=== PATIENT | female | born 1935 | race Caucasian/White ===

== ENCOUNTER → 2019-07-27 | Outpatient (CLI) | payer OTHER | LOC: SJCVC 11:30 | DX: Z01.810 Encounter for preprocedural cardiovascular examination (principal); I21.29 ST elevation (STEMI) myocardial infarction involving other sites; R00.1 Bradycardia, unspecified; R94.31 Abnormal electrocardiogram [ECG] [EKG]; I10 Essential (primary) hypertension; M16.11 Unilateral primary osteoarthritis, right hip; J44.9 Chronic obstructive pulmonary disease, unspecified; M19.90 Unspecified osteoarthritis, unspecified site; Z79.82 Long term (current) use of aspirin; Z79.899 Other long term (current) drug therapy; Z87.891 Personal history of nicotine dependence ==

== ENCOUNTER → 2019-08-02 | Outpatient (CLI) | payer OTHER | END | disposition home or self-care (01) | LOC: SJCVCIMAG 07:36 | DX: Z01.810 Encounter for preprocedural cardiovascular examination (principal); I25.89 Other forms of chronic ischemic heart disease; R07.9 Chest pain, unspecified; I10 Essential (primary) hypertension; R60.9 Edema, unspecified; E78.00 Pure hypercholesterolemia, unspecified; M19.90 Unspecified osteoarthritis, unspecified site ==

== ENCOUNTER → 2019-09-02 | Outpatient (CLI) | payer OTHER ==
[~2019-09-02] MED LIST: ASA81BEC PO; HYDROCHLOROTHIA25 M2 PO; LANOXIN125 MCG PO; MELOXICAM7.5 MG PO; TOPROL XL100 MG PO; TOPROL XL50 MG PO; TRAZODONE HCL50 MG PO; XARELTO20 MG PO
== END ==
LOC: SJCVC 15:32
PROVIDERS: ATTEND Internal Medicine Cardiovascular Disease
DX: R94.31 Abnormal electrocardiogram [ECG] [EKG] (principal); I47.1 Supraventricular tachycardia; I48.0 Paroxysmal atrial fibrillation; I10 Essential (primary) hypertension; E78.00 Pure hypercholesterolemia, unspecified; R60.9 Edema, unspecified; M54.5 Low back pain; G89.29 Other chronic pain; J44.9 Chronic obstructive pulmonary disease, unspecified; M19.90 Unspecified osteoarthritis, unspecified site; Z87.891 Personal history of nicotine dependence; Z79.82 Long term (current) use of aspirin; Z79.899 Other long term (current) drug therapy; Z88.8 Allergy status to other drugs, medicaments and biological substances

== ENCOUNTER → 2019-09-07 | Outpatient (CLI) | payer OTHER | LOC: SJCVCIMAG 12:06 | DX: I08.3 Combined rheumatic disorders of mitral, aortic and tricuspid valves (principal); I48.0 Paroxysmal atrial fibrillation; I11.9 Hypertensive heart disease without heart failure; R94.31 Abnormal electrocardiogram [ECG] [EKG]; J44.9 Chronic obstructive pulmonary disease, unspecified; I42.9 Cardiomyopathy, unspecified; R60.9 Edema, unspecified; E78.00 Pure hypercholesterolemia, unspecified; M19.90 Unspecified osteoarthritis, unspecified site; Z87.891 Personal history of nicotine dependence; Z79.82 Long term (current) use of aspirin; Z79.899 Other long term (current) drug therapy ==

== ENCOUNTER → 2019-09-16 | Outpatient (CLI) | payer OTHER ==
[~2019-09-16] VITALS: Ht 162.6 cm; Wt 83.9 kg
[2019-09-16 08:36] VITALS: BP 145/61
[2019-09-16 08:36] LABS: HEMATOCRIT 38.3 % (37.0-47.0); HEMOGLOBIN 12.4 gm/dL (12.0-15.0); MCH 30.3 pg (26.0-34.0); MCHC 32.5 g/dL (28.0-37.0); MCV 93.1 fL (80.0-100.0); RBC 4.11 mil/uL (4.20-5.00); RDW 14.1 % (10.5-14.5); WBC 6.5 thou/uL (4.0-11.0)
[2019-09-16 08:42] LABS: CALCIUM 9.6 mg/dL (8.5-10.1); CREATININE 1.1 mg/dL (0.6-1.0); POTASSIUM 4.1 mmol/L (3.5-5.1)
[2019-09-16 08:47] LABS: DIGOXIN 0.6 ng/mL (0.9-2.0)
--- NOTE | 2019-09-16 12:43 | CATHLAB ---
[facility] [place] [address] INVASIVE PROCEDURE REPORT Name: JACQUELIN ROGERS [id number]: 09/16/19 Attend Phys: Hermse Larsen MD Discharge: Date of : 39 Report #: [id number] THIS REPORT FOR: cc: Shravan Ramirez MD, Eric K. MD Park, Jin S. MD ~ APPROVED REPORT Study performed: 09/16/2019 09:37:50 Patient Details Patient Status: Out-Patient Room #: The patient is a 84 year-old female Event Personnel Hermes Larsen Cupola Patcher Helper, Cris Cleaning RN RN, Akiko Escoto Monitor, Suresh Burroughs RTR Scrub Procedures Performed Art Access - R femoral artery* 26843 Initial Mod Sed Same Phys/QHP Gr5y 991900 87298 Mod Sed Same Phys/QHP Ea [id number] Left Heart Cath w/or w/o Coronaries [id number] [facility] Hemostasis with Manual pressure Indication Atrial fibrillation, Dyspnea, CardiomyopathyPositive stress test Risk Factors Hypercholesterolemia, Hypertension Procedure Narrative The patient was brought electively to the Cardiac Catheterization Laboratory and was prepped and draped in a sterile manner. The Right Groin^ was infiltrated with 1% Lidocaine subcutaneous anesthesia. A PINNACLE 4FR Sheath #[id number] sheath was inserted into the RFA^. Coronary angiography was performed using coronary diagnostic catheters. The right coronary system was accessed and visualized with a JR 4 catheter. The left coronary system was accessed and visualized with a JL 4 catheter. The left ventricle was accessed and visualized with a Pigtail catheter. Left ventricular/Aortic Valve gradient assessed via catheter pullback. Left ventriculogram was performed in KHAN projection. Hemostasis was obtained with manual pressure following sheath removal without any complications. The patient [facility] [address] [place] [address] INVASIVE PROCEDURE REPORT Name: JACQUELIN ROGERS Room #: REG [facility]#: [id number] Admission: 09/16/19 Attend Phys: Hermes Larsen MD Discharge: Date of : 39 Report #: [id number] tolerated the procedure well and there were no complications associated with the procedure. There was no hematoma. Intraoperative Conscious Sedation Sedation start time: 09:23 Case end Time: 09:50 Fentanyl 100 mcg Versed 2 mg Fluoro Time: 3.00 minutes Dose: DAP 3693.00 cGycm2 754 mGy Contrast Type and Amount: Omnipaque 45 ml Coronary Angiography The patient's coronary anatomy is co- dominant. Diagnostic Cath Left Main The left main artery is a large-caliber vessel, patent with no flow-limiting lesions. LAD The LAD is a moderate size caliber vessel, traversing the anterior wall and wrapping around the apex. The LAD is patent, with no flow-limiting lesions. Diagonal 1 This is a patent vessel, with no flow-limiting lesions. Circumflex This is a codominant vessel, patent with no flow-limiting lesions. OM1 This is a moderate size caliber vessel, patent with no flow-limiting lesions. OM2 This is a small-caliber vessel, patent with no flow-limiting lesions OM3 This is a small-caliber vessel, patent with no flow-limiting lesions Right Coronary This is a moderate size caliber vessel, patent with no flow-limiting lesions. R PDA This is a moderate size caliber vessel, patent with no flow-limiting lesions. Left Ventriculography The left ventricle is normal in size with decreased contractility. The left ventricular ejection fraction is estimated to be 40-45%. Hemodynamics The aortic pressure is 148/53 mmHg with a mean of 84 mmHg. The left ventricular pressure is 138/8 mmHg with a mean of mmHg. The left ventricular end diastolic pressure is 25 mmHg. [facility] [address] [place] [address] INVASIVE PROCEDURE REPORT Name: JACQUELIN ROGERS Room #: REG [facility]#: [id number] Admission: 09/16/19 Attend Phys: Hermes Larsen MD Discharge: Date of : 39 Report #: [id number] Conclusion 1. Angiographically normal coronary arteries. 2. Codominant system. 3. 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 <ELECTRONICALLY SIGNED> By: Hermes Larsen MD 09/16/19 1241 40 40 Hermes Larsen MD /INF
--- NOTE | 2019-09-16 16:22 | EKG ---
[facility] [place] [address] ELECTROCARDIOGRAM REPORT Name: JACQUELIN ROGERS Room #: REG [facility]#: [id number] Admission: 09/16/19 Attend Phys: Hermes Larsen MD Discharge: Date of : 39 Report #: [id number] THIS REPORT FOR: cc: Shravan Ramirez MD, Eric K. MD Park, Jin S. MD ~ THIS REPORT FOR: //name// [facility] Test Date: 2019-09-16 Test Time: 08:34:23 Pat Name: JACQUELIN ROGERS Department: Room: Gender: Baker Second: Loraine STEWART : 1935 Requested By: Hermes Larsen Order Number: [id number] MD: Hermes Larsen Measurements Intervals [place] Rate: 49 P: 66 SD: 204 QRS: -11 QRSD: 106 T: 13 QT: 447 QTc: 404 Interpretive Statements Sinus bradycardia Anterior infarct, old Compared to ECG 04/24/2004 09:43:50 Myocardial infarct finding now present Poor R-wave progression no longer present Electronically Signed On 09-16-2019 16:21:01 CDT by Hermes Larsen [email or web address] <ELECTRONICALLY SIGNED> By: Hermes Larsen MD 09/16/19 1621 0834 0834 Hermes Larsen MD /EPI
== END ==
LOC: CATH 07:58
PROVIDERS: Internal Medicine Cardiovascular Disease
DX: R94.39 Abnormal result of other cardiovascular function study (principal); I48.91 Unspecified atrial fibrillation; E78.00 Pure hypercholesterolemia, unspecified; I10 Essential (primary) hypertension; I42.8 Other cardiomyopathies; M19.90 Unspecified osteoarthritis, unspecified site; J44.9 Chronic obstructive pulmonary disease, unspecified; Z87.891 Personal history of nicotine dependence

== ENCOUNTER → 2019-10-03 | Outpatient (CLI) | payer OTHER | LOC: SJCVC 13:18 | PROVIDERS: ATTEND Internal Medicine Cardiovascular Disease | DX: I21.29 ST elevation (STEMI) myocardial infarction involving other sites (principal); R94.31 Abnormal electrocardiogram [ECG] [EKG]; I42.9 Cardiomyopathy, unspecified; I48.91 Unspecified atrial fibrillation; I10 Essential (primary) hypertension; G89.29 Other chronic pain; J44.9 Chronic obstructive pulmonary disease, unspecified; Z79.899 Other long term (current) drug therapy; Z87.891 Personal history of nicotine dependence ==

== ENCOUNTER → 2019-11-03 | Outpatient (CLI) | payer OTHER | LOC: SJCVCIMAG 08:56 | DX: Z01.810 Encounter for preprocedural cardiovascular examination (principal); I08.3 Combined rheumatic disorders of mitral, aortic and tricuspid valves; I11.9 Hypertensive heart disease without heart failure; I48.91 Unspecified atrial fibrillation; I42.9 Cardiomyopathy, unspecified; R60.0 Localized edema; J44.9 Chronic obstructive pulmonary disease, unspecified; M19.90 Unspecified osteoarthritis, unspecified site; Z87.891 Personal history of nicotine dependence; Z79.82 Long term (current) use of aspirin; Z79.899 Other long term (current) drug therapy ==

== ENCOUNTER → 2020-02-03 | Outpatient (CLI) | payer OTHER | LOC: SJCVC 13:57 | PROVIDERS: ATTEND Internal Medicine Cardiovascular Disease | DX: I44.0 Atrioventricular block, first degree (principal); R94.31 Abnormal electrocardiogram [ECG] [EKG]; I42.9 Cardiomyopathy, unspecified; I48.91 Unspecified atrial fibrillation; I10 Essential (primary) hypertension; R60.9 Edema, unspecified; J44.9 Chronic obstructive pulmonary disease, unspecified; M19.90 Unspecified osteoarthritis, unspecified site; Z79.899 Other long term (current) drug therapy; Z87.891 Personal history of nicotine dependence ==

== ENCOUNTER → 2020-07-19 | Outpatient (CLI) | payer OTHER | LOC: SJCVC 13:32 | PROVIDERS: ATTEND Internal Medicine Cardiovascular Disease | DX: R94.31 Abnormal electrocardiogram [ECG] [EKG] (principal); R00.1 Bradycardia, unspecified; I48.91 Unspecified atrial fibrillation; I42.9 Cardiomyopathy, unspecified; I10 Essential (primary) hypertension; R60.9 Edema, unspecified; J44.9 Chronic obstructive pulmonary disease, unspecified; Z88.8 Allergy status to other drugs, medicaments and biological substances; Z87.891 Personal history of nicotine dependence ==

== ENCOUNTER → 2020-08-16 | Outpatient (CLI) | payer OTHER | LOC: RAD 11:00 | PROVIDERS: ATTEND Internal Medicine Cardiovascular Disease | DX: I48.91 Unspecified atrial fibrillation (principal); M47.814 Spondylosis without myelopathy or radiculopathy, thoracic region; M19.011 Primary osteoarthritis, right shoulder; M19.012 Primary osteoarthritis, left shoulder ==